=== PATIENT | male | born 1950 | race Caucasian/White ===

== ENCOUNTER → 2017-08-14 | Outpatient (CLI) | payer MEDICARE, OTHER ==
[~2017-08-14] MED LIST: ASPI325EC PO; ATEN50 PO; ATOR40TA PO; CEPH500 PO; CHOL10002; CHOLESTEROL MED; FINA5 PO; GABA300 PO; IBUP800 PO; INSULANPEN SQ; LEVSOD50 PO; LISI20 PO; METF850 PO; MORP30ER PO; PIOG30 PO; RANI150 PO; ROSU10TA PO; SERT100 PO; SULI150 PO; TERA5 PO
== END | disposition home or self-care (01) ==
LOC: LAB SHORT 12:00 → LAB 12:00
DX: L02.416 Cutaneous abscess of left lower limb (principal)
CPT/HCPCS: 87070; 87075; 87077; 87147; 87186; 87205

== ENCOUNTER 2018-12-10 09:54 | Emergency (ER) | payer OTHER, MEDICARE ==
[~2018-12-10] VITALS: Ht 180.3 cm; Wt 174.6 kg
[2018-12-10 10:21] LABS: Source, Urine Clean Catch
[2018-12-10 10:23] LABS: Bilirubin, Urine Neg (Neg); Blood, Urine Neg (Neg); Glucose Qualitative, Urine Neg (Neg); Ketones, Urine Neg (Neg); Leukocyte Esterase, Urine Neg (Neg); Nitrite, Urine Neg (Neg); Protein, Urine 3+ (Neg); Urobilinogen, Urine NORM (Normal)
[2018-12-10 10:29] LABS: Appearance, Urine Clear (Clear); Color, Urine Yellow (P-Yellow)
[2018-12-10 10:31] LABS: Red Blood Cells, Urine 0-2 /hpf (0-2); Squamous Epithelial Cells Rare /hpf (Few); White Blood Cells, Urine 0-2 /hpf (0-5)
[2018-12-10 10:32] LABS: Bacteria Rare /hpf
[2018-12-10 10:36] LABS: BASOPHILS ABSOLUTE AUTO 0.03 K/mm3 (0.00-0.23); BASOPHILS PERCENT AUTO 0 % (0-2); EOSINOPHILS PERCENT AUTO 1 % (0-6); Hematocrit 41.8 % (37.0-53.0); Hemoglobin 13.1 g/dL (13.5-17.5); IMMATURE GRAN ABSOLUTE AUTO 0.05 K/mm3 (0.00-0.10); IMMATURE GRAN PERCENT AUTO 1 % (0-1); LYMPHOCYTES ABSOLUTE AUTO 1.87 K/mm3 (0.84-5.20); LYMPHOCYTES PERCENT AUTO 17 % (21-46); MONOCYTES ABSOLUTE AUTO 0.66 K/mm3 (0.16-1.47); MONOCYTES PERCENT AUTO 6 % (4-13); Mean Corpuscular HGB 27.2 pg (26.0-34.0); Mean Corpuscular HGB Conc 31.3 g/dL (31.5-36.5); Mean Corpuscular Volume 87 fL (80-100); Mean Platelet Volume 10.6 fL (9.1-12.4); NEUTROPHILS ABSOLUTE AUTO 8.27 K/mm3 (1.96-9.15); NEUTROPHILS PERCENT AUTO 75 % (41-73); Platelet Count 225 K/mm3 (150-400); RDW Coefficient Variation 13.1 % (11.7-14.2); RDW Standard Deviation 41.1 fL (35.1-46.3); Red Blood Cell Count 4.82 M/mm3 (4.30-5.90); White Blood Cell Count 10.98 K/mm3 (4.00-11.30)
[2018-12-10 10:58] LABS: Alanine Aminotransfer (ALT/SGP 23 U/L (12-78); Albumin, Blood 3.4 g/dL (3.4-5.0); Albumin/Globulin Ratio 0.7 (0.8-1.8); Alk Phos 128 U/L (50-136); Anion Gap 6 mmol/L (6-16); Aspartate Aminotrans (AST/SGOT 27 U/L (12-37); Bilirubin, Total 0.8 mg/dL (0.1-1.0); Blood Urea Nitrogen 17 mg/dL (8-24); Bun/Creatinine Ratio 20.2 (12.0-20.0); CO2, Blood 26 mmol/L (21-32); Calcium, Blood 9.1 mg/dL (8.5-10.1); Chloride, Blood 104 mmol/L (98-108); Creatinine, Blood 0.84 mg/dL (0.60-1.20); Globulin, Blood 4.7 g/dL (2.2-4.0); Glomerular Filtration Rate >60 (60-); Glucose, Blood 152 mg/dL (70-99); Potassium, Blood 4.6 mmol/L (3.5-5.5); Sodium, Blood 136 mmol/L (136-145); Total Protein, Blood 8.1 g/dL (6.4-8.2)
[2018-12-10] MEDS ORDERED: Cipro500 MG PO (13:07)
[2018-12-10] MEDS ORDERED: Flagyl500 MG PO (13:07)
== END 2018-12-10 13:36 | disposition home or self-care (01) ==
LOC: ER 09:54
PROVIDERS: Emergency Medicine
DX: R10.31 Right lower quadrant pain (principal); Z88.0 Allergy status to penicillin; Z79.899 Other long term (current) drug therapy; Z79.82 Long term (current) use of aspirin; Z79.4 Long term (current) use of insulin; E11.9 Type 2 diabetes mellitus without complications; I10 Essential (primary) hypertension; Z87.891 Personal history of nicotine dependence
CPT/HCPCS: 36415; 74177; 80053; 81001; 83690; 85025; 96374-59; 96375; 99284-25; J2405; J3010; Q9967

== ENCOUNTER 2020-01-16 09:28 | Emergency (ER) | payer OTHER, MEDICARE ==
[~2020-01-16] VITALS: Ht 182.9 cm; Wt 167.8 kg
[~2020-01-16 09:28] MED LIST changes: +Cipro500 MG PO; +Flagyl500 MG PO
[2020-01-16 09:59] LABS: BASOPHILS ABSOLUTE AUTO 0.03 K/mm3 (0.00-0.23); BASOPHILS PERCENT AUTO 0 % (0-2); EOSINOPHILS ABSOLUTE AUTO 0.07 K/mm3 (0.00-0.68); EOSINOPHILS PERCENT AUTO 1 % (0-6); Hematocrit 39.8 % (37.0-53.0); Hemoglobin 12.5 g/dL (13.5-17.5); IMMATURE GRAN ABSOLUTE AUTO 0.05 K/mm3 (0.00-0.10); IMMATURE GRAN PERCENT AUTO 0 % (0-1); LYMPHOCYTES ABSOLUTE AUTO 2.05 K/mm3 (0.84-5.20); LYMPHOCYTES PERCENT AUTO 16 % (21-46); MONOCYTES ABSOLUTE AUTO 0.77 K/mm3 (0.16-1.47); MONOCYTES PERCENT AUTO 6 % (4-13); Mean Corpuscular HGB 27.2 pg (26.0-34.0); Mean Corpuscular HGB Conc 31.4 g/dL (31.5-36.5); Mean Corpuscular Volume 87 fL (80-100); Mean Platelet Volume 10.9 fL (9.1-12.4); NEUTROPHILS ABSOLUTE AUTO 10.17 K/mm3 (1.96-9.15); NEUTROPHILS PERCENT AUTO 77 % (41-73); Platelet Count 233 K/mm3 (150-400); RDW Coefficient Variation 12.8 % (11.7-14.2); RDW Standard Deviation 40.2 fL (35.1-46.3); Red Blood Cell Count 4.59 M/mm3 (4.30-5.90); White Blood Cell Count 13.14 K/mm3 (4.00-11.30)
[2020-01-16 10:12] LABS: Alanine Aminotransfer (ALT/SGP 21 U/L (12-78); Albumin, Blood 3.2 g/dL (3.4-5.0); Albumin/Globulin Ratio 0.8 (0.8-1.8); Alk Phos 132 U/L (50-136); Anion Gap 10 mmol/L (6-16); Aspartate Aminotrans (AST/SGOT 21 U/L (12-37); Bilirubin, Total 0.9 mg/dL (0.1-1.0); Blood Urea Nitrogen 17 mg/dL (8-24); Bun/Creatinine Ratio 17.4 (12.0-20.0); CO2, Blood 24 mmol/L (21-32); Calcium, Blood 9.1 mg/dL (8.5-10.1); Chloride, Blood 102 mmol/L (98-108); Creatinine, Blood 0.98 mg/dL (0.60-1.20); Globulin, Blood 4.1 g/dL (2.2-4.0); Glomerular Filtration Rate >60 (60-); Glucose, Blood 157 mg/dL (70-99); Potassium, Blood 3.9 mmol/L (3.5-5.5); Sodium, Blood 136 mmol/L (136-145); Total Protein, Blood 7.3 g/dL (6.4-8.2); Troponin I <0.015 ng/mL (0.000-0.040)
[2020-01-16 14:20] LABS: Source, Urine Voided
[2020-01-16 14:39] LABS: Appearance, Urine Clear (Clear); Bilirubin, Urine Neg (Neg); Blood, Urine Neg (Neg); Color, Urine Yellow (P-Yellow); Glucose Qualitative, Urine Neg (Neg); Ketones, Urine Neg (Neg); Leukocyte Esterase, Urine Neg (Neg); Nitrite, Urine Neg (Neg); Protein, Urine 3+ (Neg); Specific Gravity, Urine 1.015 (1.003-1.022); Urobilinogen, Urine NORM (Normal)
[2020-01-16 14:58] LABS: Bacteria Rare /hpf; Red Blood Cells, Urine 0-2 /hpf (0-2); Squamous Epithelial Cells Rare /hpf (Few); White Blood Cells, Urine 0-2 /hpf (0-5)
[2020-01-16] MEDS ORDERED: PANT40 PO (15:41)
[2020-01-16] MEDS ORDERED: ONDA4 PO (15:41)
[2020-01-16] MEDS ORDERED: Norco 5-325 Ta1 EACH PO (15:41)
== END 2020-01-16 15:55 | disposition home or self-care (01) ==
LOC: ER 09:28
PROVIDERS: Emergency Medicine
DX: R10.13 Epigastric pain (principal); R11.0 Nausea; R63.0 Anorexia; R19.7 Diarrhea, unspecified; E11.9 Type 2 diabetes mellitus without complications; I25.2 Old myocardial infarction; I10 Essential (primary) hypertension; Z88.0 Allergy status to penicillin; Z79.82 Long term (current) use of aspirin; Z79.899 Other long term (current) drug therapy; Z79.4 Long term (current) use of insulin; Z87.891 Personal history of nicotine dependence
CPT/HCPCS: 36415; 51798; 71045; 74177; 80053; 81001; 83690; 84484; 85025; 93005; 93010; 96361; 96374-59; 96375; 99284-25; C9113; J2270; J2405; J7030; Q9967

== ENCOUNTER 2020-01-21 08:30 | Inpatient (IN) | payer OTHER, MEDICARE ==
[~2020-01-21] VITALS: Ht 182.9 cm; Wt 166.0 kg
[~2020-01-21 08:30] MED LIST changes: -CHOL10002; +EUTHYROX50 MCG PO; -LEVSOD50 PO; -METF850 PO; +Metformin HCl850 MG PO; +Norco 5-325 Ta1 EACH PO; +ONDA4 PO; +PANT40 PO; +VITAMIN D31000 UNI1 PO
[2020-01-21 08:59] LABS: BASOPHILS ABSOLUTE AUTO 0.05 K/mm3 (0.00-0.23); BASOPHILS PERCENT AUTO 0 % (0-2); EOSINOPHILS ABSOLUTE AUTO 0.03 K/mm3 (0.00-0.68); EOSINOPHILS PERCENT AUTO 0 % (0-6); Hematocrit 37.3 % (37.0-53.0); Hemoglobin 11.7 g/dL (13.5-17.5); IMMATURE GRAN ABSOLUTE AUTO 0.06 K/mm3 (0.00-0.10); IMMATURE GRAN PERCENT AUTO 1 % (0-1); LYMPHOCYTES ABSOLUTE AUTO 1.11 K/mm3 (0.84-5.20); LYMPHOCYTES PERCENT AUTO 9 % (21-46); MONOCYTES ABSOLUTE AUTO 1.34 K/mm3 (0.16-1.47); MONOCYTES PERCENT AUTO 10 % (4-13); Mean Corpuscular HGB 26.8 pg (26.0-34.0); Mean Corpuscular HGB Conc 31.4 g/dL (31.5-36.5); Mean Corpuscular Volume 86 fL (80-100); Mean Platelet Volume 10.7 fL (9.1-12.4); NEUTROPHILS ABSOLUTE AUTO 10.51 K/mm3 (1.96-9.15); NEUTROPHILS PERCENT AUTO 80 % (41-73); Platelet Count 268 K/mm3 (150-400); RDW Coefficient Variation 12.9 % (11.7-14.2); RDW Standard Deviation 39.8 fL (35.1-46.3); Red Blood Cell Count 4.36 M/mm3 (4.30-5.90)
[2020-01-21 09:14] LABS: Albumin, Blood 2.7 g/dL (3.4-5.0); Albumin/Globulin Ratio 0.6 (0.8-1.8); Bilirubin, Total 0.7 mg/dL (0.1-1.0); Bun/Creatinine Ratio 22.3 (12.0-20.0); Calcium, Blood 9.4 mg/dL (8.5-10.1); Creatinine, Blood 1.57 mg/dL (0.60-1.20); Globulin, Blood 4.7 g/dL (2.2-4.0); Potassium, Blood 4.3 mmol/L (3.5-5.5); Total Protein, Blood 7.4 g/dL (6.4-8.2)
[2020-01-21 15:19] LABS: Campylobacter Sp Not Detected (NOT DETECT)
[2020-01-21 15:20] LABS: Adenovirus F 40/41 Not Detected (NOT DETECT); Astrovirus Not Detected (NOT DETECT); Cryptosporidium Not Detected (NOT DETECT); Cyclospora Cayetanensis Not Detected (NOT DETECT); E. Coli O157 Not Detected (NOT DETECT); Entamoeba Histolytica Not Detected (NOT DETECT); Enteroaggregative E. coli-EAEC Not Detected (NOT DETECT); Enteropathogenic E. coli-EPEC Not Detected (NOT DETECT); Enterotoxigenic E. coli-ETEC Not Detected (NOT DETECT); Giardia Lamblia Not Detected (NOT DETECT); Norovirus GI/GII Not Detected (NOT DETECT); Plesiomonas Shigelloides Not Detected (NOT DETECT); Rotavirus A Not Detected (NOT DETECT); Salmonella Sp Not Detected (NOT DETECT); Sapovirus Not Detected (NOT DETECT); Shiga Toxin-prod E. coli-STEC Not Detected (NOT DETECT); Shigella/Enteroin E. coli-EIEC Not Detected (NOT DETECT); Vibrio Cholerae Not Detected (NOT DETECT); Vibrio Sp Not Detected (NOT DETECT); Yersinia Enterocolitica Not Detected (NOT DETECT)
--- NOTE | 2020-01-21 18:02 | NUR ---
SHIFT SUMMARY RECEIVED REPORT FROM MARSHAL DE LOS SANTOS IN ED. PT TO ROOM AT APPROX 1235; TRANSFERED TO BED VIA SLIDER SHEET. PT ORIENTED TO ROOM AND CALL LIGHT. EDUCATED ON FALL RISK AND NEED TO CALL FOR ASSISTANCE. PT A&Ox3; CALM AND COOPERATIVE WITH CARE. PT RESTING IN BED DURING SHIFT. PT REPORT CHRONIC BACK PAIN; MEDICATED x1 WITH FENT WITH POSITIVE RESULTS. PT REPORTS DIZZINESS WITH STANDING AND WALKING. PT DENIES CHEST PAIN, SOB, NASUEA. PT RECEIVING PROTONIX GTT. BP ELEVATED, TRENDING DOWN; OTHER VSS. NO OTHER ACUTE CHANGES NOTED DURING SHIFT. WILL CONTINUE TO MONITOR UNTIL REPORT GIVEN TO ONCOMING RN.
[2020-01-22 05:28] LABS: BASOPHILS ABSOLUTE AUTO 0.02 K/mm3 (0.00-0.23); BASOPHILS PERCENT AUTO 0 % (0-2); EOSINOPHILS ABSOLUTE AUTO 0.15 K/mm3 (0.00-0.68); EOSINOPHILS PERCENT AUTO 2 % (0-6); Hematocrit 35.9 % (37.0-53.0); Hemoglobin 11.3 g/dL (13.5-17.5); IMMATURE GRAN ABSOLUTE AUTO 0.05 K/mm3 (0.00-0.10); IMMATURE GRAN PERCENT AUTO 1 % (0-1); LYMPHOCYTES ABSOLUTE AUTO 1.62 K/mm3 (0.84-5.20); LYMPHOCYTES PERCENT AUTO 16 % (21-46); MONOCYTES ABSOLUTE AUTO 0.85 K/mm3 (0.16-1.47); MONOCYTES PERCENT AUTO 8 % (4-13); Mean Corpuscular HGB 26.9 pg (26.0-34.0); Mean Corpuscular HGB Conc 31.5 g/dL (31.5-36.5); Mean Corpuscular Volume 86 fL (80-100); Mean Platelet Volume 10.4 fL (9.1-12.4); NEUTROPHILS ABSOLUTE AUTO 7.45 K/mm3 (1.96-9.15); NEUTROPHILS PERCENT AUTO 73 % (41-73); Platelet Count 245 K/mm3 (150-400); RDW Coefficient Variation 12.8 % (11.7-14.2); RDW Standard Deviation 40.4 fL (35.1-46.3); White Blood Cell Count 10.14 K/mm3 (4.00-11.30)
[2020-01-22 05:52] LABS: Anion Gap 8 mmol/L (6-16); Blood Urea Nitrogen 36 mg/dL (8-24); CO2, Blood 28 mmol/L (21-32); Calcium, Blood 8.6 mg/dL (8.5-10.1); Chloride, Blood 102 mmol/L (98-108); Creatinine, Blood 1.24 mg/dL (0.60-1.20); Glomerular Filtration Rate >60 (60-); Glucose, Blood 110 mg/dL (70-99); Potassium, Blood 3.8 mmol/L (3.5-5.5); Sodium, Blood 138 mmol/L (136-145)
--- NOTE | 2020-01-22 06:42 | NUR ---
SHIFT SUMMARY PT A&OX4. SP02 >92% ON RA. PT ATTEMPTED CPAP WHILE SLEEPING BUT STATES HE COULDNT GET A GOOD SEAL/PREFERRED HIS HOME EQUIPMENT. WORE CPAP FOR APPROX AN HOUR. TELEMETRY READS SR, HR 90'S. PT HAD MULTIPLE EPISODES OF BLACK, LIQUID STOOL. PT C/O OF ABD AND BACK PAIN. MEDICATED WITH FENTANYL PER EMAR X2 THIS SHIFT. PROTONIX INFUSING T/O SHIFT. PT'S RIGHT IV WAS PULLED OUT ACCIDENTALLY BY PT. NURSE ATTEMPTED TO START A NEW IV IN R HAND, TO FUFILL NS FLUID ORDER. PT REFUSED IV AND NS THIS SHIFT. WILL CONTINUE TO MONITOR
[2020-01-22 14:11] LABS: Stool Occult Blood Guaiac 1 Pos (Neg)
--- NOTE | 2020-01-22 17:13 | NUR ---
PT TRANSPORTED TO [facility]. AGREES WITH PLANNED PROCEDURE.
--- NOTE | 2020-01-22 17:44 | NUR ---
01/22/20 1744 Tasha Low History, Chart, Medications and Allergies reviewed before start of procedure. PATIENT CONFIRMS NPO STATUS AND AGREES WITH SCHEDULED PROCEDURE. MONITOR INTACT WITH CONTINUOUS PULSE OXIMETRY AND INTERMITTENT BP. O2 VIA N/C INTACT THROUGHOUT SEDATION/PROCEDURE. 3-LEAD EKG REVIEWED WITH PHYSICIAN PRIOR TO START OF PROCEDURE. DR. BOCANEGRA PROVIDING MAC.
--- NOTE | 2020-01-22 18:04 | NUR ---
SHIFT SUMMARY PT A&Ox4; CALM AND COOPERATIVE WITH CARE. PT RESTING IN BED DURING SHIFT. CONTINUES TO HAVE MULTIPLE BOUTS OF BLACK LIQUID STOOL. PT REPORTS BACK AND ABD PAIN; MEDICATED x1 WITH POSITIVE RESULTS. PT DENIES SOB, NAUSEA AND DIZZINESS. PT TO EGD THIS EVENING. BP ELEVATED, MEDICATED x1 WITH PRN LABATOLOL WITH POSTIIVE RESULTS. OTHER VSS. NO OTHER ACUTE CHANGES NOTED DURING SHFIT. WILL CONTINUE TO MONITOR UNTIL REPORT GIVEN TO ONCOMING RN.
--- NOTE | 2020-01-22 19:19 | NUR ---
PT BACK TO FROM EGD; REPORTS "CHEST PAIN" 9/10 HARD BALL; WORSE WHEN BREATHING. NOTIFIED DR SAENZ; NEW ORDERS FOR EKG AND STAT TROP. PT STATES PAIN DECREASED TO 8/10; WHEN ASKED ABOUT CHEST PAIN, PT LUQ PAIN; PENDING TROP. ELEVATED BP NOTED; STARTED TO TREND DOWN. REPORT GIVEN TO ONCOMING RN. PLANS FOR COLONOSCOPY TOMORROW, DR SAENZ AT BEDSIDE DISCUSSING PREP; PT EXPRESSING CONCERNS REGARDING FREQUENCY OF BOWEL MOVEMENTS; NOTIFEID DR SAENZ; NEW ORDERS FOR RECTAL TUBE. REPORT GIVEN TO ONCOMING RN.
--- NOTE | 2020-01-22 22:37 | NUR ---
ELEVATED TROPONIN MD ALEJO NOTIFIED OF PT ELEVATED TROPONIN 0.067. MD ALEJO ORDERED 2 MORE TROPONIN LABS TO FURTHER MONITOR. PT DENIES CHEST PAIN. WILL CONTINUE TO MONITOR.
--- NOTE | 2020-01-23 06:22 | NUR ---
SHIFT SUMMARY PT A&OX4. SP02 >94% ON RA. PT HAS HX OF GEOREGTTE, USES CPAP AT HOME WHILE SLEEPING. PT REFUSED CPAP, STATES, "ITS NOT LIKE MY HOME ONE". STATES HE DOES NOT LIKE THE MASK HERE. WITHOUT WEARING THE CPAP WHILE SLEEPING, PT O2 SATURATION WOULD DECREASE, ALARMING THE CONTINUOUS PULSE OXIMETRY, CAUSING IT TO BEEP. PT STATES THE BEEPING KEPT WAKING HIM UP. APPLIED A NEW CONTINUOUS PULSE OX DEVICE TO FINGER WITH THE SAME RESULT. EDUCATED THE PT ON THE IMPORTANCE OF WEARING CPAP BUT PT STILL NOT AGREEABLE TO WEARING CPAP. TELEMETRY READS SR, HR 90'S. PT DENIES CHEST PAIN. PT DID HAVE AN ELEVATED TROPONIN LAB OF 0.067 CALLED TO MD, SEE PREVIOUS NOTE. LABATOLOL GIVEN PRN PER EMAR FOR SYSTOLIC BP >160 X2 THIS SHIFT. PT CONTINUED TO HAVE BLACK, LIQUID STOOL. RECTAL TUBE PLACED THIS SHIFT. DRAINING TO GRAVITY. RECTAL TUBE BAG HAD APPROX 300 MLS AT END OF SHIFT. CHANGED BAG, NEW BAG IN PLACE. PT CURRENTLY PREPPING FOR COLONOSCOPY THIS AFTERNOON BY DRINKING GOLYLTLY INITIATED @ 0600, PT TOLERATING AT THIS TIME. POWERGLIDE IN PIO INFUSING NS DRIP PER EMAR. CALL LIGHT IN REACH. WILL CONTINUE TO MONITOR UNTIL END OF SHIFT.
[2020-01-23 08:26] LABS: BASOPHILS ABSOLUTE AUTO 0.04 K/mm3 (0.00-0.23); BASOPHILS PERCENT AUTO 0 % (0-2); EOSINOPHILS PERCENT AUTO 2 % (0-6); Hematocrit 38.5 % (37.0-53.0); Hemoglobin 11.9 g/dL (13.5-17.5); IMMATURE GRAN ABSOLUTE AUTO 0.17 K/mm3 (0.00-0.10); IMMATURE GRAN PERCENT AUTO 2 % (0-1); LYMPHOCYTES ABSOLUTE AUTO 1.58 K/mm3 (0.84-5.20); LYMPHOCYTES PERCENT AUTO 16 % (21-46); MONOCYTES ABSOLUTE AUTO 0.82 K/mm3 (0.16-1.47); MONOCYTES PERCENT AUTO 8 % (4-13); Mean Corpuscular HGB 26.5 pg (26.0-34.0); Mean Corpuscular HGB Conc 30.9 g/dL (31.5-36.5); Mean Corpuscular Volume 86 fL (80-100); Mean Platelet Volume 10.1 fL (9.1-12.4); NEUTROPHILS ABSOLUTE AUTO 6.92 K/mm3 (1.96-9.15); NEUTROPHILS PERCENT AUTO 71 % (41-73); Platelet Count 295 K/mm3 (150-400); RDW Coefficient Variation 12.8 % (11.7-14.2); RDW Standard Deviation 39.9 fL (35.1-46.3); Red Blood Cell Count 4.49 M/mm3 (4.30-5.90); White Blood Cell Count 9.73 K/mm3 (4.00-11.30)
[2020-01-23 08:39] LABS: Anion Gap 8 mmol/L (6-16); Blood Urea Nitrogen 21 mg/dL (8-24); Bun/Creatinine Ratio 23.1 (12.0-20.0); CO2, Blood 28 mmol/L (21-32); Calcium, Blood 8.9 mg/dL (8.5-10.1); Chloride, Blood 105 mmol/L (98-108); Creatinine, Blood 0.91 mg/dL (0.60-1.20); Glomerular Filtration Rate >60 (60-); Glucose, Blood 119 mg/dL (70-99); Potassium, Blood 3.9 mmol/L (3.5-5.5); Sodium, Blood 141 mmol/L (136-145)
--- NOTE | 2020-01-23 10:41 | NUR ---
pt laying in bed awake a/ox3, pleasant and cooperative with care, follows commands well, denies pain, or complaints, lungs are clear in upper patel, dim in bases, resp even and unlabored, no cough noted, is on r/a, hrr, tele in place running sr per monitor, see strip, +1 edema noted to b/l le, ppp+2, cap refill <3sec, vs stable, afebrile, iv site is power glide to mick, site is clear and patent, btx4, abd large soft nontender, has a rectal tube in place draining black liquid stool, uses urinal to void, skin has some scattered bruisings, otherwise c/w/d, maew, is bedrest at this time, call light in reach.
--- NOTE | 2020-01-23 12:45 | NUR ---
pt stool is not clear enough for a scope, will give another round of golytely, until clear. vs stable, no complaints except having to drink prep again. call light in reach.
--- NOTE | 2020-01-23 14:57 | NUR ---
pt called nurse to room, states he pulled out his rectal tube trying to move himself up in bed. it is out with balloon intact, stool in the tube is yellow with a few small flecks, call to Dr. Wall, he will scope him this afternoon. got pt cleaned up, and informed him of plan. call light in reach.
--- NOTE | 2020-01-23 15:09 | NUR ---
pt taken for scope.
--- NOTE | 2020-01-23 16:02 | NUR ---
01/23/20 1602 EN CONTRERAS History, Chart, Medications and Allergies reviewed before start of procedure. 3-LEAD EKG REVIEWED WITH PHYSICIAN PRIOR TO START OF PROCEDURE. O2 VIA N/C INTACT THROUGHOUT SEDATION/PROCEDURE. MONITOR INTACT WITH CONTINUOUS PULSE OXIMETRY AND INTERMITTENT BP. MAC WITH DR. BASURTO.
--- NOTE | 2020-01-23 17:45 | NUR ---
PT RETURNED TO ROOM FROM ENDOSCOPY, HE IS SLEEPY BUT EASILY WAKES, AND IS ASKING ABOUT WATER. FULL LIQUID DIET WAS ORDERED, V.S. DONE. CALL LIGHT IN REACH.
--- NOTE | 2020-01-23 18:21 | NUR ---
GAVE LABATOLOL FOR HTN, B/P WENT UP, WILL CONTINUE TO MONITOR, CALL LIGHT IN REACH.
--- NOTE | 2020-01-23 22:30 | NUR ---
ELEVATED BP PT WAS GIVEN LABATOLOL PRN FOR SYSTOLIC BP >160 PER EMAR. PT BP CONTINUED TO BE ELEVATED. CALL PLACED TO PROVIDER. MD ROBERSON WITH ORDERS FOR PT HOME MED, LISINOPRIL PO AND ONE TIME NORVASC PO. WILL CONTINUE TO MONITOR.
--- NOTE | 2020-01-24 06:14 | NUR ---
SHIFT SUMMARY PT A&OX4. SP02 >94% ON RA. PT WORE CPAP WHILE SLEEPING. SLEPT ON AND OFF T/O THE NIGHT. TELEMETRY READS SR, HR 60'S-80'S. PT DENIES CHEST PAIN. LABATOLOL GIVEN PRN PER EMAR FOR SYSTOLIC BP >160 X1 THIS SHIFT. PT HAD ELAVATED SYSTOLIC BP AFTER LABATOLOL GIVEN. CALL PLACED TO MD ROBERSON, SEE PREVIOUS NOTE. PT HAD BROWN, LIQUID STOOL WITH BEDPAN. C/O OF BACK PAIN AND LLE NUMBNESS, MEDICATED WITH SCHEDULED GABAPENTIN PER EMAR. POWERGLIDE IN PIO, FLUSHES WELL. CALL LIGHT IN REACH. WILL CONTINUE TO MONITOR UNTIL END OF SHIFT.
--- NOTE | 2020-01-24 08:00 | NUR ---
PT LAYING IN BED AWAKE A/OX3, PLEASANT AND COOPERATIVE WITH CARE, FOLLOWS COMMANDS WELL, DEINIES PAIN, STATES HE SLEPT WELL LAST NIGHT, LUNGS ARE CLEAR IN UPPER FIGUEROA, DIM IN BASES, RESP EVEN AND UNLABORED, NO COUGH NOTED, IS CURRENTLY ON R/A, HRR, TELE IN PLACE RUNNING SR PER MONITOR, SEE STRIP, NO EDEMA NOTED, PPP+2, CAP REFILL <3SEC, VS STABLE, AFEBRILE, IV SITE IS A POWER GLIDE TO PIO, SITE IS CLEAR AND PATENT, BTX4, ABD LARGE SOFT NONTENDER, VOIDS IV URINAL, SKIN C/W/D, BOTTOM IS SORE FROM BOWEL PREP YESTERDAY, WILL PUT OINTMENT ON IT, VOIDS VIA URINAL, SKIN IS C/D/I, MAEW, PULLS HIMSELF UP IN BED, AND TURNS, FIDENCIO, CALL LIGHT IN REACH.
[2020-01-24 08:21] LABS: Hemoglobin 11.8 g/dL (13.5-17.5)
[2020-01-24 08:35] LABS: International Normalized Ratio 1.02; Prothrombin Time Results 10.9 Sec (9.7-11.5)
[2020-01-24] MEDS ORDERED: ATOR20 PO (12:46)
[2020-01-24] MEDS ORDERED: LISI20 PO (12:47)
--- NOTE | 2020-01-24 14:37 | NUR ---
pt has been discharged to home, will follow up with Dr. Fuentes as an outpt. went over discharge instructions with him, he verbalized understanding, power glide was removed intact. pt has all belongings, and will leave via wheelchair to a cab to take him home. up to chair at this time.
--- NOTE | 2020-01-24 19:07 | NUR ---
pt left via wheelchair with return agent airport in attendence with all his belongings.
== END 2020-01-24 14:50 | disposition home or self-care (01) | DRG 392 ==
LOC: ER 08:30 → PCU 11:36
PROVIDERS: Emergency Medicine; Family Medicine; Internal Medicine Gastroenterology; Nurse Practitioner Acute Care; ADMIT Internal Medicine
PROC: 0DB68ZX Excision of Stomach, Via Natural or Artificial Opening Endoscopic, Diagnostic (ICD-10-PCS; 2020-01-22)
PROC: 0DBA8ZX Excision of Jejunum, Via Natural or Artificial Opening Endoscopic, Diagnostic (ICD-10-PCS; 2020-01-22)
PROC: 0DB98ZX Excision of Duodenum, Via Natural or Artificial Opening Endoscopic, Diagnostic (ICD-10-PCS; principal; 2020-01-22 17:00)
PROC: 0DBK8ZZ Excision of Ascending Colon, Via Natural or Artificial Opening Endoscopic (ICD-10-PCS; 2020-01-23)
PROC: 0DBL8ZZ Excision of Transverse Colon, Via Natural or Artificial Opening Endoscopic (ICD-10-PCS; 2020-01-23)
DX: K20.80 Other esophagitis without bleeding (principal); R65.10 Systemic inflammatory response syndrome (SIRS) of non-infectious origin without acute organ dysfunction; D62 Acute posthemorrhagic anemia; N17.9 Acute kidney failure, unspecified; Z68.43 Body mass index [BMI] 50.0-59.9, adult; K52.9 Noninfective gastroenteritis and colitis, unspecified; I25.119 Atherosclerotic heart disease of native coronary artery with unspecified angina pectoris; E03.9 Hypothyroidism, unspecified; N40.1 Benign prostatic hyperplasia with lower urinary tract symptoms; G47.33 Obstructive sleep apnea (adult) (pediatric); Z79.4 Long term (current) use of insulin; E11.43 Type 2 diabetes mellitus with diabetic autonomic (poly)neuropathy; K31.84 Gastroparesis; K31.9 Disease of stomach and duodenum, unspecified; E66.9 Obesity, unspecified; E66.01 Morbid (severe) obesity due to excess calories; I10 Essential (primary) hypertension; E78.5 Hyperlipidemia, unspecified; K21.9 Gastro-esophageal reflux disease without esophagitis; Z95.5 Presence of coronary angioplasty implant and graft; K57.30 Diverticulosis of large intestine without perforation or abscess without bleeding; K64.8 Other hemorrhoids
CPT/HCPCS: 0097U; 36415; 74022; 74177; 80048; 80053; 82272; 82947; 83605; 84484; 85014; 85018; 85025; 85610; 85730; 86850; 86900; 86901; 87324; 88305; 88342; 93005; 93010; 94660; 94762; 96365; 96366; 96375; 96376; 99285-25; A9270-GY; C1751; C9113; J2001; J2405; J2704; J3010; J7030; J7120; Q9967; U0003

== ENCOUNTER 2020-01-27 05:15 | Inpatient (IN) | payer OTHER, MEDICARE ==
[~2020-01-27] VITALS: Ht 182.9 cm; Wt 171.7 kg
[~2020-01-27 05:15] MED LIST changes: +ATOR20 PO
[2020-01-27 05:45] LABS: Calcium, Ionized (POC) 1.16 mmol/L (1.10-1.46); Chloride (POC) 99 mmol/L (98-108); Creatinine (POC) 6.2 mg/dL (0.8-1.3); Glucose (ISTAT POC) 205 mg/dL (70-99); Hemoglobin (POC) 13.6 g/dL (13.5-17.5); Potassium (POC) 4.3 mmol/L (3.5-5.5); Sodium (POC) 134 mmol/L (135-148); Total CO2 (POC) 17 mmol/L (21-32)
[2020-01-27 05:46] LABS: Hematocrit 40.3 % (37.0-53.0); Hemoglobin 12.4 g/dL (13.5-17.5); Mean Corpuscular HGB 26.9 pg (26.0-34.0); Mean Corpuscular HGB Conc 30.8 g/dL (31.5-36.5); Mean Corpuscular Volume 87 fL (80-100); Platelet Count 297 K/mm3 (150-400); RDW Coefficient Variation 13.2 % (11.7-14.2); RDW Standard Deviation 42.1 fL (35.1-46.3); Red Blood Cell Count 4.61 M/mm3 (4.30-5.90); White Blood Cell Count 30.01 K/mm3 (4.00-11.30)
[2020-01-27 06:12] LABS: Albumin, Blood 2.6 g/dL (3.4-5.0); Albumin/Globulin Ratio 0.5 (0.8-1.8); Bilirubin, Total 0.6 mg/dL (0.1-1.0); Calcium, Blood 9.5 mg/dL (8.5-10.1); Creatinine, Blood 5.4 mg/dL (0.60-1.20); Globulin, Blood 4.9 g/dL (2.2-4.0); Potassium, Blood 4.3 mmol/L (3.5-5.5); Total Protein, Blood 7.5 g/dL (6.4-8.2); Troponin I 0.037 ng/mL (0.000-0.040)
[2020-01-27 06:29] LABS: BAND PERCENT MAN 23 % (0-8); BASOPHILS PERCENT MAN 0 % (0-2); EOSINOPHILS PERCENT MAN 0 % (0-6); LYMPHOCYTES PERCENT MAN 12 % (21-46); MONOCYTES PERCENT MAN 9 % (4-13); SEG NEUTROPHILS PERCENT MAN 56 % (41-73); TOTAL CELLS COUNTED 100
[2020-01-27 08:38] LABS: Source, Urine Voided
[2020-01-27 08:53] LABS: Appearance, Urine Hazy (Clear); Blood, Urine Neg (Neg); Color, Urine Yellow (P-Yellow); Glucose Qualitative, Urine 2+ (Neg); Ketones, Urine 1+ (Neg); Leukocyte Esterase, Urine 1+ (Neg); Nitrite, Urine Neg (Neg); Protein, Urine 2+ (Neg); Urobilinogen, Urine 1+ (Normal)
[2020-01-27 08:56] LABS: International Normalized Ratio 1.13
[2020-01-27 09:04] LABS: Bilirubin, Urine 2+ (Neg)
[2020-01-27 09:06] LABS: Red Blood Cells, Urine 0-2 /hpf (0-2); Squamous Epithelial Cells Rare /hpf (Few); White Blood Cells, Urine 0-2 /hpf (0-5)
[2020-01-27 09:07] LABS: Amorphous Heavy (0-Heavy); Bacteria Few /hpf
[2020-01-27 09:08] LABS: Calcium Oxalate Crystals Rare /hpf
[2020-01-27 09:29] LABS: Base Excess Venous -6.9 mmol/L; Bicarbonate Venous 18.6 mmol/L (24.0-30.0); PCO2 Venous 53.7 mmHg (38-42); PO2 Venous 66.4 mmHg (38-42)
--- NOTE | 2020-01-27 09:30 | NUR ---
PT ADMITTED TO ICU 5 FROM ER. UPON ARRIVAL PT WAS ALERT AND ORIENTED, ABLE TO ANSWER QUESTIONS AND INTERACT WITH STAFF. PT WAS RECEIVING IVF BOLUS AND LEVOPHED INFUSION. DR GARNICA AT BEDSIDE TO SEE PT. NG PLACED TO LIS PER DR GARNICA. GREEN BILE NOTED TO BE COMING OUT OF NG. PT REPORTS ABD PAIN WAS GREATLY IMPROVED. ABD REMAINS DISTENDED. MONITOR SHOWED PT TO BE SINUS TACH, PT DENIES CHESTPAIN CURRENTLY. BP INTIALLY LOW, NEW BOLUS STARTED AND TITRATED LEVOPHED GTT. PT WAS ON 7L OXYMIZER AND LUNGS WERE DIMINISED THROUGH OUT, PT REPORTS USE OF CPAP AT HOME. RT NOTIFIED OF USE. AUTO REPAIR TECHNICIAN ARRIVED TO BEDSIDE FOR ECHO.
[2020-01-27 09:35] LABS: Creatine Kinase MB 19.6 ng/mL (0.0-3.6); Troponin I 0.031 ng/mL (0.000-0.040)
[2020-01-27 09:37] LABS: Creatine Kinase MB Index 1.7 (0.0-4.0)
--- NOTE | 2020-01-27 14:15 | NUR ---
REASSESSMENT PT REMAINS A&Ox4. BP'S HAVE MAINTAINED WITH LEVOPHED GTT, UNABLE TO TITRATE DOWN CURRENTLY. PICC LINE ORDERED AND PICC RN NOTIFIED. NG OUTPUT HAS SLOWED AND REMAINS OPEN TO LIS. PT REPORTS ABD DISCOMFORT IS IMPROVED. VERY LITTLE URINARY OUTPUT NOTED SINCE ADMIT, DR WAGNER NOTIFIED. PT DROPS SPO2 WHEN SLEEPING AND NEEDS INCREASED O2. RT NOTIFIED AND THEY WILL BRING CPAP AND SET UP PER ORDERS. PT CONTINUES TO BE IN SINUS TACH ON MONITOR.
--- NOTE | 2020-01-27 18:33 | NUR ---
SHIFT SUMMARY PT IS ALERT AND ORIENTEDx4, FOLLOWS COMMANDS. C/O ABD PAIN TENDERNESS WITH PALPITATION. NG LIS INCREASED BY DR GARNICA THIS AFTERNOON, OUTPUT SLOWED THIS AFTERNOON. URINE OUT ALSO REMAINS LOW. 24 HOUR URINE IN PROGRESS, WILL BE COMPLETED TOMORROW 01/27 AT 1100am. PT HAS MAINTAINED SPO2 ON CPAP THIS AFTERNOON W/ 8L O2 BLED IN, SMALL LEAK IN MASK AROUND NG TUBE. MONITOR CONTINUES TO SHOW PT IN SINUS TACH. LEVOPHED REMAINS ON TO MAINTAIN BP, SEE ICU FLOWSHEET FOR TITRATIONS. PICC LINE PLACED THIS AFTERNOON. HEPARIN GTT CONTINUES TO INFUSES, PER PHARMACY DOSING.
[2020-01-27 19:21] LABS: Albumin/Globulin Ratio 0.5 (0.8-1.8); Bilirubin, Total 0.7 mg/dL (0.1-1.0); Bun/Creatinine Ratio 12.7 (12.0-20.0); Calcium, Blood 8.3 mg/dL (8.5-10.1); Creatinine, Blood 5.42 mg/dL (0.60-1.20); Globulin, Blood 4.2 g/dL (2.2-4.0); Total Protein, Blood 6.2 g/dL (6.4-8.2)
--- NOTE | 2020-01-27 20:07 | NUR ---
ASSUMED CARE: PT A&O. IN ST. SBP IN THE 120S. MAP >60. HR IN THE 100S. LUNG SOUNDS CLEAR. ON CPAP WITH 8L BEED IN. ABD IS DISTENDED, FIRM, AND TENDER. NGT TUBE IN PLACE WITH BROWN/BLACK OUTPUT. PT HAS PICC TO SAHIL, A PIV IN L HAND, AND 2 PIV IN R ARM. HEPARIN, LEVOPHED, SODIUM BICARB INFUSING. 24 HR URINE BEING COLLECTED VIA KNOTT. IS ON ICE. MINIMAL TO NO URINE OUTPUT. 24HR COLLECTION TO END AT 1100 TOMORROW. WILL CONTINUE TO MONITOR
[2020-01-28 06:19] LABS: Alanine Aminotransfer (ALT/SGP 235 U/L (12-78); Albumin, Blood 1.8 g/dL (3.4-5.0); Albumin/Globulin Ratio 0.4 (0.8-1.8); Alk Phos 109 U/L (50-136); Anion Gap 11 mmol/L (6-16); Aspartate Aminotrans (AST/SGOT 279 U/L (12-37); Bilirubin, Direct 0.2 mg/dL (0.0-0.3); Bilirubin, Indirect 0.2 mg/dL (0.1-0.7); Bilirubin, Total 0.4 mg/dL (0.1-1.0); Blood Urea Nitrogen 81 mg/dL (8-24); Bun/Creatinine Ratio 14.5 (12.0-20.0); CO2, Blood 21 mmol/L (21-32); Calcium, Blood 7.9 mg/dL (8.5-10.1); Chloride, Blood 107 mmol/L (98-108); Globulin, Blood 4.3 g/dL (2.2-4.0); Glomerular Filtration Rate 10 (60-); Glucose, Blood 118 mg/dL (70-99); Magnesium, Blood 1.6 mg/dL (1.6-2.4); Phosphorus, Blood 7.3 mg/dL (2.5-4.9); Potassium, Blood 5.2 mmol/L (3.5-5.5); Sodium, Blood 139 mmol/L (136-145); Total Protein, Blood 6.1 g/dL (6.4-8.2); Uric Acid, Blood 12.5 mg/dL (3.5-7.2)
[2020-01-28 06:26] LABS: Hematocrit 33.1 % (37.0-53.0); Mean Corpuscular HGB 26.8 pg (26.0-34.0); Mean Corpuscular HGB Conc 30.2 g/dL (31.5-36.5); Mean Corpuscular Volume 89 fL (80-100); Mean Platelet Volume 11.4 fL (9.1-12.4); Platelet Count 260 K/mm3 (150-400); RDW Coefficient Variation 13.3 % (11.7-14.2); RDW Standard Deviation 43.9 fL (35.1-46.3); Red Blood Cell Count 3.73 M/mm3 (4.30-5.90); White Blood Cell Count 17.35 K/mm3 (4.00-11.30)
[2020-01-28 06:27] LABS: BAND PERCENT MAN 19 % (0-8); BASOPHILS PERCENT MAN 0 % (0-2); EOSINOPHILS ABSOLUTE MAN 0.34 K/mm3 (0.00-0.68); EOSINOPHILS PERCENT MAN 2 % (0-6); LYMPHOCYTES ABSOLUTE MAN 0.17 K/mm3 (0.84-5.20); LYMPHOCYTES PERCENT MAN 1 % (21-46); METAMYELOCYTE ABSOLUTE MAN 0.34 K/mm3 (0.00-0.00); METAMYELOCYTE PERCENT MAN 2 % (0-0); MONOCYTES ABSOLUTE MAN 1.56 K/mm3 (0.16-1.47); MONOCYTES PERCENT MAN 9 % (4-13); NEUTROPHILS ABSOLUTE MAN 14.92 K/mm3 (1.96-9.15); SEG NEUTROPHILS PERCENT MAN 67 % (41-73); TOTAL CELLS COUNTED 100
--- NOTE | 2020-01-28 06:31 | NUR ---
SHIFT SUMMARY: NO ACUTE CHANGES T/O NIGHT. VSS ON 2MCG LEVOPHED. DURING NIGHT HIS O2 DEMANDS INCREASE WHILE SLEEPING. ON CPAP WITH 8L BLEED IN. HEPARIN REMAINS INFUSING AT 13U. PT IS PAINFUL WITH TURNS. WILL PASS REPORT TO ONCOMING SHIFT
[2020-01-28 07:11] LABS: Amylase, Blood 37 U/L (25-115); CPK Creatine Kinase 1282 U/L (39-308); Vancomycin, Random 22.7 ug/mL
--- NOTE | 2020-01-28 09:26 | NUR ---
PT ASSESSED AT 0700 THIS AM. HEPARIN GTT DC'D BY DR PICKENS. LEVOPHED WAS AT 2MCG AND STOPPED. MAP REMAINS >65. PT HAS ACUTE 10/10 ABD PAIN ON ASSESSMENT. ABD SEVERLY DISTENDED, FIRM, TENDER. NG WOULD NOT FLUSH THIS AM; NG REMOVED, LARGE KINK IN NGT. NEW NG PLACED TO R NARE AND PLACED TO SUCTION. 1.5L GASTRIC CONTENT SUCTIONED OUT; PT DID HAVE SOME PAIN RELIEF. DR WAGNER, DR RAMIREZ, AND DR GARNICA IN TO SEE PT THIS AM. STAT ABD/PELVIC CT SCAN COMPLETED PER DR GARNICA. LACTIC ACID REPEATED REMAINS ELEVATED. RESULTS GIVEN TO DR VASQUEZ AND DR GARNICA. EKG COMPLETED AND SHOWN TO DR PICKENS WHO SAW PT THIS AM AT 0930. DR GARNICA CALLED AT 0924 AND GIVEN FULL UPDATE; DR GARNICA WILL BE BACK SHORTLY TOP RE-EVALUATE PT. FENT 50MCG GIVEN W SOME PAIN RELIEF; PT STILL HAVING SIGNIFICANT ABD PAIN. NG REMAINS TO MOD INTERMIT. SX. PICC LINE KINKED THIS AM, BRITNI REPLACED, TWO PORTS WORKING. CATHFLO PLACED TOP 3RD PORT, IT IS NOT PATENT. PT REQUIRES 6L O2 VIA OXYMIZER. SATS >94%. SATS DROP TO 82% ON RA. VERY LOW U/O, AROUND 15CC; DR VASQUEZ NOTIFIED.
--- NOTE | 2020-01-28 09:53 | NUR ---
SURGERY PLANNED FOR 1200; WAITING FOR HEPARIN GTT TO BE OFF FOR [address] GARNICA ATTEMPTED TO CALL PT'S BROTHER; NO ANSWER. NEIGHBOR CALLED AND UPDATED W PT'S PERMISSION. PT IS CONFUSED TO DATE; UNABLE TO ANSWER COMPLEX QUESTIONS.
--- NOTE | 2020-01-28 10:21 | NUR ---
LEVOPHED RESTARTED AT 2MCG FOR MAP IN HIGH 50'S.
--- NOTE | 2020-01-28 11:24 | NUR ---
PT BECAME SIGNIFICANTLY HYPOTENSIVE, O2 SATS STARTED TO JOEL DOWN. CPAP PLACED, RT AND DR WAGNER CALLED. PT EMERGENTLY INTUBATED AT 1114. LR 1 L BOLUS STARTED, VASOPRESSIN STARTED.
--- NOTE | 2020-01-28 11:45 | NUR ---
LEVOPHED IS UP TO 20MCG, LR BOLUS IS INFUSING, 2 ADDITIONAL LITERS OF LR ORDERED. PT OUTSIDE SALES HAND TO COMMAND. PROPOFOL IS AT 20MCG; DR WAGNER AT BEDSIDE.
[2020-01-28 12:27] LABS: PCO2 Arterial 46.9 mmHg (35-45)
[2020-01-28 12:28] LABS: pH Blood Arterial 7.22 (7.35-7.45)
--- NOTE | 2020-01-28 13:28 | NUR ---
PT TO OR IN CARE OF ANESTHESIOLOGIST AND 2 RN'S. PROPOFOL AND BICARB GTT DISCONNECTED PER ANESTHESIA. BP IMPROVING WITH 3RD LITER OF LR. PT STILL ABLE TO FOLLOW VERY SIMPLE COMMANDS.
--- NOTE | 2020-01-28 15:16 | NUR ---
post surgical patient. with poor prognosis. plan is comfort care review organ donation and end of life care. pt on vent and supportive care. Brand Strategy Manager notifying family of plan and grief support.
--- NOTE | 2020-01-28 15:20 | NUR ---
PT BACK FROM OR AT 1435. PER DR GARNICA ENTIRE SMALL BOWEL NECROTIC. DRSG TO ABD; WOUND UNCLOSED PER OR. PT ARRIVED W LEVOPHED AT 25MCG. ART LINE TO RIGHT WRIST. BP STABLE. LEVOPHED DECREASED TO 15MCG OVER 1 HR. VASOPRESSIN INFUSING. ANESTHESIOLOGIST STARTED 4TH LITER OF LR DURING OR CASE. PT AWAKE AT 1445. FENT 50MCG GIVEN FOR PAIN. PT ABLE TO FOLLOW SIMPLE COMMANDS. PT REMAINED AWAKE AFTER FENT. PROPOFOL RESTARTED AT 20MCG. DR GARNICA HAD LONG DISCUSSION W PT'S BROTHER; THE PLAN IS TO WITHDRAWAL CARE AND PLACE PT ON COMFORT CARE. PT'S BROTHER COMFIRMED THIS WITH THIS RN. FILIBERTO' PT'S BROTHER HAD STATED IT WOULD BE HIS BROTHERS WISHES TO DISCONNECT FROM LIFE SUPPORT AND TO LET HIM PASS NATURALLY, WITHOUT FURTHER INTERVENTION, WHILE KEEPING PT COMFORTABLE AND FREE FROM PAIN MUCH POSSIBLE. PASTORAL CARE AT BEDSIDE ALONG W PALLIATIVE CARE. DR WAGNER HAS BEEN FULLY UPDATED BY DR GARNICA.
--- NOTE | 2020-01-28 15:53 | NUR ---
SPOKE WITH PT'S BROTHER FILIBERTO AND SISTER IN [place] ONCE AGAIN VIA PHONE TO COMFIRM FIDELIA. FAMILY REQUESTS THAT PT BE EXTUBATED AND PLACED ON COMFORT CARE. FAMILY IS FLYING DOWN TO HELP WITH ARRANGEMENTS AND ARE AWARE THAT PT MAY PASS AWAY BEFORE THEY ARRIVE. DR WAGNER UPDATED. PT'S NEIGHBOR AND FRIEND AT BEDSIDE. PT'S BELONGINGS TO BE SENT HOME WITH KAREN; FAMILY NOTIFIED. (BELONGINGS: WALLET W 183$ CONNER, 1 SILVER TONED NECKLACE, 2 SILVERTONED RINGS, CELL PHONE, GLASSES, SOCKS, SHOES, WATCH).
--- NOTE | 2020-01-28 16:30 | NUR ---
PROPOFOL OFF PRIOR TO EXTUBATION. PT SOMEWHAT AWAKE, RESTLESS, KICKING LEGS, RESTLESS. MS AND ATIVAN GIVEN FOR COMFORT. PRESSORS TURNED OFF AT 1620.
--- NOTE | 2020-01-28 16:41 | NUR ---
PT CALM ON PRECEDEX AT 0.3MCG, BUT BREATHING SHALLOW AND LABORED WITH RESP 30'S. LIPS DUSKY. BIPAP REPLACED; PT TOLERATING WELL. BP CONT TO HTN
--- NOTE | 2020-01-28 16:49 | NUR ---
pt daughter coming in, patriotic quilt placed and pt given [place] flag and therputic time with family . counter intelligence at bedside.
--- NOTE | 2020-01-28 17:09 | NUR ---
DAUGHTER AT BEDSIDE ALONG WITH PASTEROL CARE AND PALLIATIVE CARE. PT EXTUBATED AQT 1702. PT RESTLESS POST EXTUBATION AND GRIMACING. MS JEREMÍAS.
--- NOTE | 2020-01-28 17:17 | NUR ---
TIME OF 171. FAMILY REMIANS AT BEDSIDE.
--- NOTE | 2020-01-28 17:18 | NUR ---
family at bedside pt , will review funneral plan with family.
--- NOTE | 2020-01-28 17:46 | NUR ---
Spiritual care note: Present throughout the day with this pt. T/C to brother, Jeronimo, ADRIÁN, Chandni, and friend, Jenny. Jenny is the only one local. Informed all of pt's rapid decline. Jenny arrived and needed director of counseling and comfort. Apparently, Ramon has been estranged from his dtr for over a year. Jenny was able to find dtr's phone # and contacted. Dtr arrived distraught and tearful. Gently explained process of letting go. Provided prayer and presence throughout extubation and final heartbeat. Ramon passed peacefully thanks to excellent nursing. Brothguillermo and ADRIÁN to arrive from [place] tomorrow. Per pt's wishes (according to Yolanda Dumont) contact for final arrangements. Pt also expressed he wanted Jenny to take his belongings home with her. Family appreciaitve of compassionate care by [facility] staff.
== END 2020-01-28 17:15 | DRG 853 ==
LOC: ER 05:15 → ICUE 08:53 → ICUW 08:53 → ICUE 08:58
PROVIDERS: Emergency Medicine; Internal Medicine Critical Care Medicine; Nurse Practitioner Acute Care; ADMIT Hospitalist
PROC: 02H633Z Insertion of Infusion Device into Right Atrium, Percutaneous Approach (ICD-10-PCS; principal; 2020-01-27)
PROC: 0DJD0ZZ Inspection of Lower Intestinal Tract, Open Approach (ICD-10-PCS; 2020-01-28)
PROC: 5A09357 Assistance with Respiratory Ventilation, Less than 24 Consecutive Hours, Continuous Positive Airway Pressure (ICD-10-PCS; 2020-01-28)
PROC: 0BH18EZ Insertion of Endotracheal Airway into Trachea, Via Natural or Artificial Opening Endoscopic (ICD-10-PCS; 2020-01-28)
PROC: 5A1935Z Respiratory Ventilation, Less than 24 Consecutive Hours (ICD-10-PCS; 2020-01-28)
DX: A41.9 Sepsis, unspecified organism (principal); J96.01 Acute respiratory failure with hypoxia; K65.0 Generalized (acute) peritonitis; K55.059 Acute (reversible) ischemia of intestine, part and extent unspecified; R65.21 Severe sepsis with septic shock; I21.3 ST elevation (STEMI) myocardial infarction of unspecified site; N17.0 Acute kidney failure with tubular necrosis; I50.21 Acute systolic (congestive) heart failure; K55.029 Acute infarction of small intestine, extent unspecified; Z68.43 Body mass index [BMI] 50.0-59.9, adult; E87.2 Acidosis; K56.609 Unspecified intestinal obstruction, unspecified as to partial versus complete obstruction; E66.2 Morbid (severe) obesity with alveolar hypoventilation; Z51.5 Encounter for palliative care; I25.2 Old myocardial infarction; N40.0 Benign prostatic hyperplasia without lower urinary tract symptoms; E03.9 Hypothyroidism, unspecified; E11.9 Type 2 diabetes mellitus without complications; K21.9 Gastro-esophageal reflux disease without esophagitis; E78.5 Hyperlipidemia, unspecified; Z87.891 Personal history of nicotine dependence; I25.10 Atherosclerotic heart disease of native coronary artery without angina pectoris; W18.30XA Fall on same level, unspecified, initial encounter; Y92.9 Unspecified place or not applicable; Z95.5 Presence of coronary angioplasty implant and graft; Z79.82 Long term (current) use of aspirin; Z79.4 Long term (current) use of insulin; E86.1 Hypovolemia; E87.5 Hyperkalemia; I11.0 Hypertensive heart disease with heart failure
CPT/HCPCS: 31500; 31720; 36415; 36569; 36600; 71045; 71275; 74175; 74176; 80047; 80053; 80202; 81001; 82150; 82248; 82550; 82553; 82803; 82947; 83605; 83690; 83735; 83880; 84100; 84484; 84550; 85014; 85025; 85610; 85730; 87040; 87086; 93005; 93010; 94002; 94644; 94660; 96361; 96365; 96368; 96375; 99285-25; A9270-GY; C1751; C8929; C9113; J0692; J0696; J1644; J2060; J2250; J2270; J2370; J2405; J2704; J2997; J3010; J3370; J7030; J7040; J7050; J7060; J7120; Q9957; Q9967; U0003